=== PATIENT | male | born 1975 | race Caucasian/White ===

== ENCOUNTER 2019-07-27 23:55 | Emergency (ER) | payer SELFPAY ==
[~2019-07-27] VITALS: Ht 172.7 cm; Wt 73.5 kg
[2019-07-28 00:03] VITALS: Ht 172.7 cm; Wt 73.5 kg
[2019-07-28 01:16] LABS: BASOPHIL % 0.2 % (0-2); PLATELET COUNT 228 x10^3mcL (130-400); RED CELL DISTRIBUTION WIDTH 13.4 % (11.5-14.5)
[2019-07-28 01:23] LABS: CALCIUM 8.2 mg/dL (8.5-10.1); CARBON DIOXIDE 25.9 mmol/L (21-32); CREATININE SERUM 1.4 mg/dL (0.7-1.3); POTASSIUM SERUM 3.1 mmol/L (3.5-5.1)
[2019-07-28 01:28] LABS: ALBUMIN 3.5 g/dL (3.4-5.0); BILIRUBIN TOTAL 0.55 mg/dL (0.20-1.00); TOTAL PROTEIN, SERUM 6.8 g/dL (6.4-8.2)
[2019-07-28 02:17] LABS: AMPHETAMINE QUAL UR NONE DETECTED (See below)
[2019-07-28 02:46] VITALS: BP 142/92
== END 2019-07-28 02:46 | disposition home or self-care (01) ==
LOC: ED 23:55
PROVIDERS: Emergency Medicine
DX: R10.31 Right lower quadrant pain (principal); R10.32 Left lower quadrant pain; R11.2 Nausea with vomiting, unspecified
CPT/HCPCS: J1885; J2270; J2405; J7030